=== PATIENT | female | born 1975 | race Caucasian/White ===

== ENCOUNTER → 2016-07-18 | Outpatient (CLI) | payer OTHER ==
--- NOTE | 2016-07-22 11:02 | MM ---
Reason for exam: screening (asymptomatic). Last mammogram was performed 5 years and 3 months ago. History: Family history of breast cancer in sister at age 46. Took hormonal contraceptives for 10 years. Physical Findings: A clinical breast exam by your physician is recommended on an annual basis and results should be correlated with mammographic findings. MG Screening Mammo w CAD Bilateral CC and MLO view(s) were taken. Prior study comparison: May 01, 2011, bilateral digital screening mammo w/CAD. The breast tissue is heterogeneously dense. This may lower the sensitivity of mammography. No significant changes when compared with prior studies. ASSESSMENT: Negative, BI-RAD 1 RECOMMENDATION: Routine screening mammogram of both breasts in 1 year.
== END | disposition home or self-care (01) ==
LOC: RADMAMWWP 09:18
PROVIDERS: ATTEND Obstetrics & Gynecology
DX: Z12.31 Encounter for screening mammogram for malignant neoplasm of breast (principal); Z80.3 Family history of malignant neoplasm of breast

== ENCOUNTER → 2019-06-25 | Day surgery (SDC) | payer BC ==
[2019-06-23 15:51] VITALS: BMI 24.0
[~2019-06-25] MED LIST: LACTATED RINGERS 1,000 ML IV SCH; LIDOCAINE 1% INJ 10MG/ML (20 ML MDV) ONE; PROPOFOL 10 MG/ML 20 ML VIAL IV ONE
[2019-06-25 10:29] VITALS: RESP 16; TEMP 98
--- NOTE | 2019-06-25 11:16 | P.PCN ---
Date of Procedure: 06/25/19 Procedure(s) Performed: BRIEF HISTORY: Patient is a 43-year-old, pleasant, white female, scheduled for an upper endoscopy as a part of evaluation of GERD and chronic cough for the last 6 months duration. She has been on omeprazole 20 mg daily for 3 months and was increased to twice daily about a month ago improvement in his symptoms.. PROCEDURE PERFORMED: Esophagogastroduodenoscopy with biopsy. PREOPERATIVE DIAGNOSIS: GERD/Chronic cough. IV sedation per anesthesia. PROCEDURE: After informed consent was obtained, the patient was brought into the endoscopy unit. IV sedation was administered by Anesthesia under continuous monitoring. Initially the Olympus GIF-140 video endoscope was inserted into the mouth. Esophagus intubated without any difficulty. It was gradually advanced into the stomach and duodenum and carefully examined. The bulb and the second part of the duodenum appeared normal. The scope at this time was withdrawn to the stomach, adequately insufflated with air, and upon careful examination, mucosa of the antrum, had mild patchy area of erythema which was biopsied. The body, cardia and the fundus appeared normal. The scope was then withdrawn into the esophagus. The GE junction was located at 39 cm from the incisors. The esophagus appeared normal. There were no erosions or ulcerations seen and biopsies were done from the distal esophagus and the patient tolerated the procedure well. IMPRESSION: 1. Mild antral gastritis. 2. Normal-appearing esophagus with no evidence of esophagitis. RECOMMENDATIONS: The findings of this examination were discussed with the patient as well as a family. She was advised to follow with the biopsy results. She will continue with omeprazole 20 mg twice daily and follow antireflux measures.
[2019-06-25 11:28] VITALS: BP 111/61; PULSE 86
== END ==
LOC: ORWHC2ENDO 09:47
PROVIDERS: ATTEND Internal Medicine Gastroenterology
DX: K21.0 Gastro-esophageal reflux disease with esophagitis (principal); K31.9 Disease of stomach and duodenum, unspecified; K29.70 Gastritis, unspecified, without bleeding; L71.9 Rosacea, unspecified; F41.9 Anxiety disorder, unspecified; J45.909 Unspecified asthma, uncomplicated; Z79.899 Other long term (current) drug therapy; Z91.09 Other allergy status, other than to drugs and biological substances; Z79.52 Long term (current) use of systemic steroids; Z88.0 Allergy status to penicillin; Z87.898 Personal history of other specified conditions
CPT/HCPCS: 81025; 43239; J2001; J2704; 88305

== ENCOUNTER → 2020-04-27 | Outpatient (CLI) | payer BC ==
--- NOTE | 2020-04-28 08:47 | MM ---
Reason for exam: screening (asymptomatic). Last mammogram was performed 3 years and 9 months ago. History: Family history of breast cancer in sister at age 46. Took hormonal contraceptives for 10 years. Physical Findings: A clinical breast exam by your physician is recommended on an annual basis and results should be correlated with mammographic findings. MG Screening Mammo w CAD Bilateral CC and MLO view(s) were taken. XCCL view(s) were taken of the right breast. Prior study comparison: July 18, 2016, bilateral MG screening mammo w CAD. May 01, 2011, bilateral digital screening mammo w/CAD. The breast tissue is heterogeneously dense. This may lower the sensitivity of mammography. There are benign appearing round calcifications bilaterally. There is no discrete abnormality. ASSESSMENT: Benign, BI-RAD 2 RECOMMENDATION: Routine screening mammogram of both breasts in 1 year.
== END | disposition home or self-care (01) ==
LOC: RADMAMWWP 09:55
PROVIDERS: ATTEND Obstetrics & Gynecology
DX: Z12.31 Encounter for screening mammogram for malignant neoplasm of breast (principal); Z80.3 Family history of malignant neoplasm of breast
CPT/HCPCS: 77067

== ENCOUNTER → 2020-07-03 | Outpatient (CLI) | payer BC ==
--- NOTE | 2020-07-03 11:38 | XR ---
EXAMINATION TYPE: XR knee complete LT DATE OF EXAM: 07/03/2020 CLINICAL HISTORY: pain TECHNIQUE: Three views of the left knee are obtained. COMPARISON: None. FINDINGS: There is no acute fracture/dislocation. The tri-compartment joint spaces appear within no rmal limits. The overlying soft tissue appears unremarkable. IMPRESSION: There is no acute fracture or dislocation ICD 10 NO FRACTURE, INITIAL EVALUATION
== END | disposition home or self-care (01) ==
LOC: RADXRYALE 11:05
PROVIDERS: ATTEND Family Medicine
DX: M25.562 Pain in left knee (principal)

== ENCOUNTER → 2020-07-25 | Outpatient (CLI) | payer BC ==
--- NOTE | 2020-07-25 10:12 | MR ---
EXAMINATION TYPE: MR knee LT wo con DATE OF EXAM: 07/25/2020 COMPARISON: Plain film 07/03/2020 HISTORY: Lt knee pain TECHNIQUE: Multiplanar, multisequence imaging of the left knee is performed without IV contrast. FINDINGS: MEDIAL MENISCUS: There is linear abnormal increased signal within the posterior horn of the medial me niscus which extends the articular surface, sagittal image #24 LATERAL MENISCUS: Anterior and posterior horns are intact without tear. CRUCIATE LIGAMENTS: The anterior and posterior cruciate ligaments are intact and unremarkable. COLLATERAL LIGAMENTS: The medial collateral ligament and lateral collateral ligament complex are inta ct and unremarkable. EXTENSOR MECHANISM: Visualized quadriceps and patellar tendons are intact. EFFUSION: Only minimal joint fluid present POPLITEAL CYST: Minimal fluid present suggesting semimembranosus gastrocnemius cyst measuring only 5 to 6 mm TRICOMPARTMENT SPACES: Joint space loss in the medial compartment CARTILAGE: There is grade 3 to grade IV chondromalacia in the medial compartment, posterior patella, axial image 21 BONE MARROW SIGNAL: Some subchondral increased signal noted at the posterior patella and also at the medial femoral condyle, coronal image 18 OTHER: No additional significant abnormality is appreciated. IMPRESSION: Tear the posterior horn the medial meniscus. Osteoarthritis.
== END ==
LOC: RADMRIMAIN 08:26
PROVIDERS: ATTEND Family Medicine
DX: M17.12 Unilateral primary osteoarthritis, left knee (principal); M23.322 Other meniscus derangements, posterior horn of medial meniscus, left knee

== ENCOUNTER → 2021-08-06 | Outpatient (CLI) | payer OTHER ==
--- NOTE | 2021-08-06 14:12 | US ---
EXAMINATION TYPE: US abdomen limited DATE OF EXAM: 08/06/2021 COMPARISON: NONE CLINICAL HISTORY: R10.10 Upper abd pain. One episode of epigastric pain with foods, Nausea and Vomiti ng, chills EXAM MEASUREMENTS: Liver Length: 12.2 cm Gallbladder Wall: 0.2 cm CBD: 0.5 cm Right Kidney: 10.1 x 4.7 x 4.0 cm Pancreas: hyperechoic, but homogeneous Liver: wnl Gallbladder: wnl Evidence for sonographic Burris's sign: no CBD: wnl Right Kidney: No hydronephrosis or masses seen IMPRESSION: No significant abnormality appreciated at this time.
== END | disposition home or self-care (01) ==
LOC: RADUSWWP 13:30
PROVIDERS: ATTEND Family Medicine
DX: R10.10 Upper abdominal pain, unspecified (principal); R10.13 Epigastric pain; R11.2 Nausea with vomiting, unspecified; R68.83 Chills (without fever)
CPT/HCPCS: 76705

== ENCOUNTER → 2023-09-02 | Outpatient (CLI) | payer BC ==
--- NOTE | 2023-09-03 15:18 | MM ---
Reason for Exam: Screening (asymptomatic). Last mammogram was performed 3 year(s) and 4 month(s) ago. Patient History: Menarche at age 12. First Full-Term at age 25. Patient used Hormonal Contraceptives for 10 years. Sister had breast cancer, age 46. Last menstrual period: 08/12/2023 Risk Values: Francy 5 year model risk: 1.8%. NCI Lifetime model risk: 17.3%. Prior Study Comparison: 05/01/2011 Bilateral Screening Mammogram, [facility]. 07/18/2016 Bilateral Screening Mammogram, [facility]. 04/27/2020 Bilateral Screening Mammogram, [facility]. Tissue Density: The breasts are heterogeneously dense, which may obscure small masses. Findings: Analyzed By CAD. There is no suspicious group of microcalcifications or new suspicious mass in either breast. Overall Assessment: Benign, BI-RAD 2 Management: Screening Mammogram of both breasts in 1 year. . Patient should continue monthly self-breast exams. A clinical breast exam by your physician is recommended on an annual basis. This exam should not preclude additional follow-up of suspicious palpable abnormalities. Note on Francy scores and lifetime risk: 1. A Francy score greater than 3% is considered moderate risk. If this is the case, consider specialist referral to assess eligibility for a risk reducing agent. 2. If overall lifetime risk for the development of breast cancer is 20% or higher, the patient may qualify for future screening with alternating mammogram and breast MRI. Electronically signed and approved by: Boris Peña M.D. Radiologis
== END | disposition home or self-care (01) ==
LOC: RADMAMWWP 09:18
PROVIDERS: ATTEND Obstetrics & Gynecology
DX: Z12.31 Encounter for screening mammogram for malignant neoplasm of breast (principal); Z80.3 Family history of malignant neoplasm of breast
CPT/HCPCS: 77063; 77067

== ENCOUNTER → 2023-12-08 | Outpatient (CLI) | payer BC ==
--- NOTE | 2023-12-08 14:40 | US ---
EXAMINATION TYPE: US pelvic complete DATE OF EXAM: 12/08/2023 COMPARISON: NONE CLINICAL INDICATION: Female, 48 years old with history of N92.1 EXCESS FREQUENT MENST N92.4 EXCESS BL EEDING; Bleeding since July. TECHNIQUE: Transabdominal (TA). EXAM MEASUREMENTS: Uterus: 11.2 x 4.9 x 5.2 cm Endometrial Stripe: 1.2 cm Right Ovary: 2.6 x 1.7 x 1.6 cm Left Ovary: 2.8 x 1.5 x 2.3 cm 1. Uterus: Anteverted wnl 2. Endometrium: wnl 3. Right Ovary: wnl 4. Left Ovary: wnl 5. Bilateral Adnexa: wnl 6. Posterior cul-de-sac: wnl IMPRESSION: No discrete abnormality seen.
== END | disposition home or self-care (01) ==
LOC: RADUSWWP 12:58
PROVIDERS: ATTEND Family Medicine
DX: N92.1 Excessive and frequent menstruation with irregular cycle (principal); N92.4 Excessive bleeding in the premenopausal period
CPT/HCPCS: 76856

== ENCOUNTER → 2024-02-02 | Outpatient (CLI) | payer BC ==
[2024-02-02 15:18] LABS: Basophils # (A) 0.03 X 10*3/uL (0.00-0.10); Basophils % (A) 0.5 %; Eosinophils # (A) 0.07 X 10*3/uL (0.04-0.35); Eosinophils % (A) 1.2 %; HCT 41.4 % (37.2-46.3); HGB 13.4 g/dL (12.0-15.0); Lymphocytes # (A) 0.98 X 10*3/uL (0.90-5.00); Lymphocytes % (A) 16.1 %; MCH 30.3 pg (27.0-32.0); MCHC 32.4 g/dL (32.0-37.0); MCV 93.7 FL (80.0-97.0); Mean Platelet Volume 11.5 FL (9.5-12.2); Monocytes # (A) 0.65 X 10*3/uL (0.20-1.00); Monocytes % (A) 10.7 %; NRBC Per 100 WBC 0 X 10*3/uL (0.00-0.01); Neutrophils # (A) 4.33 X 10*3/uL (1.80-7.70); Neutrophils % (A) 71.3 %; Platelet Count 240 X 10*3/uL (140-440); RBC 4.42 X 10*6/uL (4.10-5.20); RDW 12.3 % (11.5-14.5); WBC 6.07 X 10*3/uL (4.50-10.00)
== END | disposition home or self-care (01) ==
LOC: LABPAT 10:31
PROVIDERS: ATTEND Obstetrics & Gynecology
DX: Z01.818 Encounter for other preprocedural examination
CPT/HCPCS: 36415; 85025

== ENCOUNTER → 2024-02-19 | Day surgery (SDC) | payer BC ==
[2024-02-12 16:18] VITALS: BMI 25.3
[~2024-02-19] MED LIST changes: +ACETAMINOPHEN TAB 325 MG TAB PO PRN; +Acetaminophen-Codeine 300-30mg TAB PO PRN; +GLYCOPYRROLATE 0.2 MG/ML 2 ML VIAL ONE; +HYDROmorphone 0.5 MG/0.5 ML SYRINGE IVP PRN; +IBUPROFEN 600 MG TAB PO PRN; +KETOROLAC 15 MG/ML 1 ML VIAL IVP PRN; +KETOROLAC 15 MG/ML 1 ML VIAL ONE; +LIDOCAINE 1% (10MG/ML) FOR IV START INTRADERMA PRN; +METOCLOPRAMIDE 5 MG/ML 2 ML VIAL IVP PRN; +MIDAZOLAM 2 MG/2 ML VIAL IV PRN; +MIDAZOLAM 2 MG/2 ML VIAL ONE; +ONDANSETRON 4 MG/2 ML VIAL IVP PRN; +Pre Op ABX Message 1 EACH MISC MISCELLANE ONE; +SIMETHICONE 80 MG CHEWABLE PO PRN; +diphenhydrAMINE 50 MG/ML 1 ML VIAL IVP PRN; +fentaNYL (PF) 50 MCG/ML 2 ML AMP IVP PRN; +fentaNYL (PF) 50 MCG/ML 2 ML AMP ONE
[2024-02-19] MEDS: IV FLUID CONTINUATION 1,000 ML IV ONE ×2 (07:07→07:29)
[2024-02-19] MEDS: LACTATED RINGERS 1,000 ML IV SCH (07:09)
[2024-02-19] MEDS: ONDANSETRON 4 MG/2 ML VIAL IVP ONE (07:13)
[2024-02-19] MEDS: DEXAMETHASONE SOD PHOSPHATE 4 MG/ML 1 ML VIAL IV ONE (07:13)
[2024-02-19] MEDS: SCOPOLAMINE 1 MG/72 HR PATCH TRANSDERM STA (07:15)
--- NOTE | 2024-02-19 08:18 | P.OP ---
Date of Procedure: 02/19/24 Preoperative Diagnosis: #1. Menometrorrhagia Postoperative Diagnosis: Same Procedure(s) Performed: #1. Diagnostic hysteroscopy #2. Dilation and curettage #3. NovaSure endometrial ablation Anesthesia: other (General By LMA) Surgeon: Adams Castrejon Estimated Blood Loss (ml): 5 IV fluids (ml): 400 Urine output (ml): 10 Pathology: other (Endometrial curettings) Condition: stable Disposition: PACU Operative Findings: Preoperative pelvic examination demonstrated a midplane to slightly anteverted 5-week sized uterus which was mobile and normal in shape. The adnexa were normal and without mass bilaterally. Intraoperatively, the uterus sounded to 10 cm with a cervical length of 4 cm. Using the hysteroscope, there was a moderate amount of shaggy endometrial tissue throughout. Moderate mount of tissue was returned onto the Telfa placed in the vagina with curettage. The typical gritty texture was encountered throughout. The settings for the NovaSure tool were a length of 6.0 cm, a width of 4.7 cm for a total power of 155 W. After a total run time of 59 seconds, the base unit read "procedure complete." The postprocedural result appeared to be excellent. The patient is a potential candidate for vaginal hysterectomy should become necessary in the future. Description of Procedure: The patient was prepped and draped in usual fashion after general anesthesia was administered by the anesthesiologist. A weighted speculum was placed and the bladder was drained of 10 cc of clear dominique urine. The anterior lip of the cervix was grasped with a single-tooth tenaculum and uterus sounded to 10 cm with a cervical length of 4 cm as noted above. Cervix was somewhat patulous to begin with and the largest dilator passed easily. The diagnostic hysteroscope was placed into the endometrial cavity and the cavity distended with saline. The findings are as noted above with a moderate amount of shaggy tissue throughout the endometrial cavity. The bilateral tubal ostia were seen. After adequate hysteroscopy been carried out, the scope was set aside and a medium sharp curette introduced into the cavity with a Telfa in the vagina. Thorough and circumferential curettage was carried out to produce a moderate amount of tissue onto the Telfa in the vagina. The specimen was then sent for pathological diagnoses. The NovaSure tool was then opened, placed into the endometrial cavity, and seated well. The settings are as noted above with a length of 6.0 cm, a width of 4.7 cm for a total power of 155 W. The cavity check was attempted and passed without difficulty. The tool was enabled and the run was started. After total run time of 59 seconds, the base unit read "procedure complete." The tool was closed, removed, and discarded. The diagnostic hysteroscope was replaced within the cavity and the resulting findings were excellent. The patient is a potential candidate for vaginal hysterectomy should it become necessary in the future. All instrumentation was then removed and there was no ongoing bleeding from either the cervix or from the tenaculum site. Estimated blood loss for the case was 5 mL or less. There were no complications. The patient tolerated the procedure well and proceeded to the recovery room in stable condition.
[2024-02-19 08:19] VITALS: TEMP 97.3
[2024-02-19 08:31] VITALS: RESP 16
[2024-02-19 09:42] VITALS: BP 125/78; PULSE 62
--- NOTE | 2024-02-19 14:49 | HP ---
HISTORY AND PHYSICAL DATE OF SURGERY: 02/19/2024. HISTORY OF PRESENT ILLNESS: The patient is a 48-year-old, 2, para 2-0-0-2, who presented to the office with complaints of significantly irregular and occasionally heavy bleeding and, after multiple conversations regarding options for treatment has requested to proceed with diagnostic hysteroscopy with NovaSure endometrial ablation. As we were unable to perform a biopsy in the office, D and C will be added as well. Method of contraception is vasectomy. PAST MEDICAL HISTORY: Significant only for reflux. PAST SURGICAL HISTORY: None. OBSTETRICAL HISTORY: 2, para 2-0-0-2 with 2 term vaginal deliveries without complications. Method of contraception is vasectomy. GYNECOLOGIC HISTORY: Unremarkable with no history of any infections to include STDs. FAMILY HISTORY: Noncontributory. SOCIAL HISTORY: The patient is and a homemaker. She is a nonsmoker and denies any other significant social concerns. CURRENT MEDICATIONS: Include sertraline 50 mg daily and a multivitamin daily. ALLERGIES: She had some sort of allergic reaction to penicillin as a teenager. REVIEW OF SYSTEMS: Confined to history of present illness. PHYSICAL EXAMINATION: VITAL SIGNS: Stable. The patient is afebrile. GENERAL: This is a well-developed, well-nourished white female, in no acute distress. HEART: Has a regular rhythm and rate without murmur. LUNGS: Clear to auscultation bilaterally in all [place]. ABDOMEN: Nondistended, has normoactive bowel sounds, soft, nontender, and normal in shape. PELVIC: The adnexa are normal and nontender without mass bilaterally. ASSESSMENT AND PLAN: Dysfunctional uterine bleeding/menometrorrhagia: A number of options were discussed with the patient and she ultimately has agreed to undergo diagnostic hysteroscopy, D and C, and NovaSure endometrial ablation. The risks and complications of the procedure have been thoroughly discussed including the risks for bleeding, bleeding requiring transfusion, infection, injury to local structures to specifically include uterine perforation, Asherman syndrome, and potential subsequent hematometra. She has understood all these risks and has agreed to proceed. We are scheduled for the morning of 02/19/2024 for the procedures as outlined above. MMODL / IJN: [id number] /
== END | disposition home or self-care (01) ==
LOC: OR 06:11
PROVIDERS: ATTEND Obstetrics & Gynecology
DX: N93.8 Other specified abnormal uterine and vaginal bleeding
CPT/HCPCS: 81025; 88305